=== PATIENT | male | born 1990 | race Caucasian/White ===

== ENCOUNTER 2016-06-29 21:21 | Emergency (ER) | payer OTHER ==
[2016-06-30 01:27] LABS: Hematocrit 44 % (42-52); Hemoglobin 14.8 g/dl (14.0-18.0); Mean Corpuscular HGB Conc 33 g/dl (31-36); Mean Corpuscular Hemoglobin 27 pg (27-31); Mean Corpuscular Volume 82 fL (80-94); Mean Platelet Volume 9 um3 (7.4-10.4); Red Blood Count 5.42 10^6/ul (4.0-5.4); Red Cell Distribution Width 14 % (10.5-15); White Blood Count 8.2 10^3/ul (3.5-10.8)
[2016-06-30 01:44] LABS: BUN/Creatinine Ratio 15.5 (8-20); Calcium 9.9 mg/dL (8.6-10.3); EGFR African American 144.4 (>60); EGFR Non-African American 112.3 (>60); Potassium 3.9 mmol/L (3.5-5.0)
[2016-06-30 03:40] VITALS: BP 157/101
--- NOTE | 2016-07-01 21:26 | ED ---
Jack Argueta Billy, scribed for Cade Holloway MD on 06/30/16 at 0047 . HPI Chest Pain - HPI Summary HPI Summary: Patient is a 26 year-old male coming to [facility] for evaluation of intermittent left anterior chest pain and lightheadedness since dinner. Pain began at approximately 211406/29/16, and has continued to this time in the ED. He states that the pain lasts only for several seconds. No pain with inspiration or movement. Positive intermittent palpitations. He also reports back pain. He had 6 cups of diet coke and a coffee today, which he states is much more than usual. He has been stressed at work. - History of Current Complaint Chief Complaint: EDChestPainROMI Time Seen by Provider: 06/30/16 00:02 Hx Obtained From: Patient Onset/Duration: Started Hours Ago Time of Onset: 21:15 Timing: Intermittent, Lasting Seconds Initial Severity: Moderate Current Severity: Moderate Pain Intensity: 2 Pain Scale Used: 0-10 Numeric Chest Pain Location: Left Anterior Chest Pain Radiates: No Aggravating Factor(s): Other: - stress, caffeine Alleviating Factor(s): Nothing Associated Signs and Symptoms: Positive: Chest Pain, Lightheadedness, Other: - palpitations - Allergy/Home Medications Allergies/Adverse Reactions: Allergies Allergy/AdvReac Type Severity Reaction Status Date / Time No Known Allergies Allergy Verified 06/29/16 21:33 PMH/Surg Hx/FS Hx/Imm Hx Endocrine/Hematology History: Denies: Hx Diabetes Cardiovascular History: Denies: Hx Myocardial Infarction Infectious Disease History: No Infectious Disease History: Denies: Traveled Outside the [place] in Last 30 Days - Family History Known Family History: Negative: Cardiac Disease - Social History Alcohol Use: Occasionally Hx Substance Use: No Substance Use Type: Reports: None Smoking Status (MU): Current Some Day Smoker Review of Systems Negative: Fever, Chills Negative: Erythema Negative: Sore Throat Positive: Palpitations, Chest Pain Negative: Shortness Of Breath, Cough Negative: Abdominal Pain, Vomiting, Nausea Positive: Other - back pain. Negative: Edema Negative: Rash Neurological: Other - lightheaded All Other Systems Reviewed And Are Negative: Yes Physical Exam - Summary Physical Exam Summary: Constitutional: Well-developed, Well-nourished, Alert. (-) Distressed Skin: Warm, Dry HENT: Normocephalic; Atraumatic Eyes: Conjunctiva normal Neck: Musculoskeletal ROM normal neck. (-) JVD, (-) Stridor, (-) Tracheal deviation Cardio: Rhythm regular, rate normal, Heart sounds normal; Intact distal pulses; The pedal pulses are 2+ and symmetric. Radial pulses are 2+ and symmetric. (-) Murmur Pulmonary/Chest wall: Effort normal. (-) Respiratory distress, (-) Wheezes, (-) Rales Abd: Soft, (-) Tenderness, (-) Distension, (-) Guarding, (-) Rebound Musculoskeletal: Left scapular pain reproducible with ROM of left arm. (-) Edema Lymph: (-) Cervical adenopathy Neuro: Alert, Oriented x3 Psych: Mood and affect Normal Triage Information Reviewed: Yes Vital Signs On Initial Exam: Initial Vitals Temp Pulse Resp BP Pulse Ox 96.4 F 99 20 159/93 100 06/29/16 21:28 06/29/16 21:28 06/29/16 21:28 06/29/16 21:28 06/29/16 21:28 Vital Signs Reviewed: Yes Diagnostics - Vital Signs Vital Signs Temp Pulse Resp BP Pulse Ox 06/29/16 22:44 97.5 F 86 20 160/104 100 06/29/16 21:35 96.4 F 94 20 159/93 100 06/29/16 21:28 96.4 F 99 20 159/93 100 - Laboratory Result Diagrams: 06/30/16 01:15 06/30/16 01:15 Lab Statement: Any lab studies that have been ordered have been reviewed, and results considered in the medical decision making process. - EKG 2139 EKG Interpretation: NSR 92 bpm, no STEMI 0251 EKG Interpretation: NSR 80 bpm, no STEMI Re-Evaluation - Re-Evaluation First Eval Re-Evaluation Time: 03:32 Chest Pain Course/Dx - Course Assessment/Plan: 26 year-old male coming to the ED for evaluation of CP. EKG in the ED was unremarkable. Troponin #1 and #2 were both 0.00. Patient was discharged home to follow up with PCP. - Diagnoses Provider Diagnoses: Chest pain, unspecified, Caffeine abuse Discharge - Discharge Plan Condition: Stable Disposition: HOME Patient Education Materials: Chest Pain (ED), Caffeine Use (ED) Referrals: [facility] FERNANDO Escalera [Primary Care Provider] - The documentation as recorded by the Jack grewal Billy accurately reflects the service I personally performed and the decisions made by me, Cade Holloway MD.
== END 2016-06-30 03:39 | disposition home or self-care (01) ==
LOC: ED 21:21
DX: R07.9 Chest pain, unspecified (principal); F15.10 Other stimulant abuse, uncomplicated; M54.9 Dorsalgia, unspecified; R42 Dizziness and giddiness; R00.2 Palpitations; Z72.0 Tobacco use
CPT/HCPCS: 36415; 80048; 84484; 85027; 93005; 99282

== ENCOUNTER 2016-07-31 10:26 | Emergency (ER) | payer OTHER ==
[2016-07-31] MEDS ORDERED: Aspirin Low Dose CHEW TAB* 81 MG PO ONE (14:08)
[2016-07-31 14:09] VITALS: BP 142/123
--- NOTE | 2016-07-31 14:34 | RAD ---
HISTORY: Chest pain COMPARISONS: None VIEWS: 2: Frontal dual-energy and lateral views of the chest. FINDINGS: CARDIOMEDIASTINAL SILHOUETTE: The cardiomediastinal silhouette is normal. JULIETTE: The juliette are normal. PLEURA: The costophrenic angles are sharp. No pleural abnormalities are noted. LUNG PARENCHYMA: The lungs are clear. ABDOMEN: The upper abdomen is clear. There is no subphrenic gas. BONES AND SOFT TISSUES: No bone or soft tissue abnormalities are noted. OTHER: None. IMPRESSION: NO ACTIVE CARDIOPULMONARY DISEASE.
[2016-07-31 15:03] LABS: Hematocrit 48 % (42-52); Hemoglobin 15.9 g/dl (14.0-18.0); Mean Corpuscular HGB Conc 33 g/dl (31-36); Mean Corpuscular Hemoglobin 27 pg (27-31); Mean Corpuscular Volume 83 fL (80-94); Mean Platelet Volume 9 um3 (7.4-10.4); Red Blood Count 5.82 10^6/ul (4.0-5.4); Red Cell Distribution Width 14 % (10.5-15); White Blood Count 6.8 10^3/ul (3.5-10.8)
[2016-07-31 15:22] LABS: Albumin 4.8 g/dL (3.2-5.2); BUN/Creatinine Ratio 11.2 (8-20); Calcium 9.9 mg/dL (8.6-10.3); EGFR African American 135.1 (>60); Globulin 3.1 g/dL (2-4); Total Bilirubin 1.2 mg/dL (0.2-1.0); Total Protein 7.9 g/dL (6.4-8.9)
[2016-07-31 15:43] LABS: TSH (Thyroid Stimulating Horm) 1.09 mcIU/mL (0.34-5.60)
--- NOTE | 2016-07-31 21:59 | ED ---
Yareli Argueta Rebecca, scribed for Ciro Ramírez MD on 07/31/16 at 1357 . Shortness of Breath - HPI Summary HPI Summary: Pt is a 26 y/o M who presents to ED c/o SOB. SOB began suddenly yesterday and has been intermittent and improving since onset. SOB characterized as dysnpea at exertion. Sx aggravated by exertion, alleviated by rest. Additionally c/o ear pressure, frontal FIGUEROA (resolved), nasal congestion, dizziness and chest discomfort. Dizziness began yesterday morning, characterized as "weakness" and aggravated by walking, unchanged by Dramamine. Chest pain is described as intermittent sharp pain that occurs in extremely brief episodes, occurring 4 times per day. CP aggravated and alleviated by nothing. Denies tinnitus. Denies any recent travel. Previous similar episode of chest pain 1 month ago. - History of Current Complaint Chief Complaint: EDShortnessOfBreath Time Seen by Provider: 07/31/16 13:46 Hx Obtained From: Patient Onset/Duration: Sudden Onset Current Severity: None Dyspnea At: Exertion Aggrevating Factors: Movement Associated Signs & Symptoms: Chest Pain Unrelated to Cough - intermittent chest discomfort, Nasal Congestion, Dizzy - Allergy/Home Medications Allergies/Adverse Reactions: Allergies Allergy/AdvReac Type Severity Reaction Status Date / Time Penicillins Allergy Unknown Verified 07/31/16 10:30 Reaction Details PMH/Surg Hx/FS Hx/Imm Hx Endocrine/Hematology History: Denies: Hx Diabetes Cardiovascular History: Denies: Hx Myocardial Infarction Infectious Disease History: No Infectious Disease History: Denies: Traveled Outside the [place] in Last 30 Days - Family History Known Family History: Negative: Cardiac Disease - Social History Alcohol Use: Occasionally Alcohol Amount: excessive on the weekends Hx Substance Use: No Substance Use Type: Reports: None Substance Use Comment - Amount & Last Used: over a year and a half ago Smoking Status (MU): Current Some Day Smoker Review of Systems Positive: Other - Nasal congestion, ear pressure; Denies tinnitus Positive: Chest Pain - intermittent, brief episodes of sharp chest pain Positive: Shortness Of Breath - dyspnea at exertion Positive: Headache - frontal - resolved, Syncope - Dizziness when walking All Other Systems Reviewed And Are Negative: Yes Physical Exam Triage Information Reviewed: Yes Vital Signs On Initial Exam: Initial Vitals Temp Pulse Resp BP Pulse Ox 98.9 F 95 18 152/78 100 07/31/16 10:27 07/31/16 10:27 07/31/16 10:27 07/31/16 10:27 07/31/16 10:27 Vital Signs Reviewed: Yes Appearance: Positive: Well-Appearing, No Pain Distress, Obese Skin: Positive: Warm, Skin Color Reflects Adequate Perfusion, Dry Head/Face: Positive: Normal Head/Face Inspection Eyes: Positive: Normal ENT: Positive: Nasal congestion Neck: Positive: Supple, Nontender Respiratory/Lung Sounds: Positive: Clear to Auscultation, Breath Sounds Present Cardiovascular: Positive: RRR Abdomen Description: Positive: Nontender, Soft Bowel Sounds: Positive: Present Musculoskeletal: Positive: Normal Neurological: Positive: Normal Psychiatric: Positive: Normal Diagnostics - Vital Signs Vital Signs Temp Pulse Resp BP Pulse Ox 07/31/16 13:15 98 F 81 18 127/103 97 07/31/16 13:14 127/103 07/31/16 12:37 97.6 F 80 16 137/79 100 07/31/16 11:29 98.1 F 90 16 154/77 98 07/31/16 10:27 98.9 F 95 18 152/78 100 - Laboratory Lab Results: Lab Results 07/31/16 07/31/16 07/31/16 Range/Units 14:50 14:50 14:50 WBC 6.8 (3.5-10.8) 10^3/ul RBC 5.82 H (4.0-5.4) 10^6/ul Hgb 15.9 (14.0-18.0) g/dl Hct 48 (42-52) % MCV 83 (80-94) fL MCH 27 (27-31) pg MCHC 33 (31-36) g/dl RDW 14 (10.5-15) % Plt Count 242 (150-450) 10^3/ul MPV 9 (7.4-10.4) um3 Neut % (Auto) 59.7 (38-83) % Lymph % (Auto) 31.1 (25-47) % [place] % (Auto) 7.2 (1-9) % Eos % (Auto) 1.5 (0-6) % Baso % (Auto) 0.5 (0-2) % Absolute Neuts (auto) 4.1 (1.5-7.7) 10^3/ul Absolute Lymphs (auto) 2.1 (1.0-4.8) 10^3/ul Absolute Monos (auto) 0.5 (0-0.8) 10^3/ul Absolute Eos (auto) 0.1 (0-0.6) 10^3/ul Absolute Basos (auto) 0 (0-0.2) 10^3/ul Absolute Nucleated RBC 0.05 10^3/ul Nucleated RBC % 0.8 D-Dimer, Quantitative (Less Than 230) ng/mL Sodium 137 (133-145) mmol/L Potassium 4.0 (3.5-5.0) mmol/L Chloride 103 (101-111) mmol/L Carbon Dioxide 26 (22-32) mmol/L Anion Gap 8 (2-11) mmol/L BUN 10 (6-24) mg/dL Creatinine 0.89 (0.67-1.17) mg/dL Est GFR ( Amer) 135.1 (>60) Est GFR (Non-Af Amer) 105.0 (>60) BUN/Creatinine Ratio 11.2 (8-20) Glucose 93 (70-100) mg/dL Lactic Acid 1.3 (0.5-2.0) mmol/L Calcium 9.9 (8.6-10.3) mg/dL Total Bilirubin 1.20 H (0.2-1.0) mg/dL AST 21 (13-39) U/L ALT 33 (7-52) U/L Alkaline Phosphatase 49 (34-104) U/L Troponin I 0.00 (<0.04) ng/mL Total Protein 7.9 (6.4-8.9) g/dL Albumin 4.8 (3.2-5.2) g/dL Globulin 3.1 (2-4) g/dL Albumin/Globulin Ratio 1.5 (1-3) TSH 1.09 (0.34-5.60) mcIU/mL 07/31/16 Range/Units 16:42 WBC (3.5-10.8) 10^3/ul RBC (4.0-5.4) 10^6/ul Hgb (14.0-18.0) g/dl Hct (42-52) % MCV (80-94) fL MCH (27-31) pg MCHC (31-36) g/dl RDW (10.5-15) % Plt Count (150-450) 10^3/ul MPV (7.4-10.4) um3 Neut % (Auto) (38-83) % Lymph % (Auto) (25-47) % [place] % (Auto) (1-9) % Eos % (Auto) (0-6) % Baso % (Auto) (0-2) % Absolute Neuts (auto) (1.5-7.7) 10^3/ul Absolute Lymphs (auto) (1.0-4.8) 10^3/ul Absolute Monos (auto) (0-0.8) 10^3/ul Absolute Eos (auto) (0-0.6) 10^3/ul Absolute Basos (auto) (0-0.2) 10^3/ul Absolute Nucleated RBC 10^3/ul Nucleated RBC % D-Dimer, Quantitative < 200 (Less Than 230) ng/mL Sodium (133-145) mmol/L Potassium (3.5-5.0) mmol/L Chloride (101-111) mmol/L Carbon Dioxide (22-32) mmol/L Anion Gap (2-11) mmol/L BUN (6-24) mg/dL Creatinine (0.67-1.17) mg/dL Est GFR ( Amer) (>60) Est GFR (Non-Af Amer) (>60) BUN/Creatinine Ratio (8-20) Glucose (70-100) mg/dL Lactic Acid (0.5-2.0) mmol/L Calcium (8.6-10.3) mg/dL Total Bilirubin (0.2-1.0) mg/dL AST (13-39) U/L ALT (7-52) U/L Alkaline Phosphatase (34-104) U/L Troponin I (<0.04) ng/mL Total Protein (6.4-8.9) g/dL Albumin (3.2-5.2) g/dL Globulin (2-4) g/dL Albumin/Globulin Ratio (1-3) TSH (0.34-5.60) mcIU/mL Result Diagrams: 07/31/16 14:50 07/31/16 14:50 Lab Statement: Any lab studies that have been ordered have been reviewed, and results considered in the medical decision making process. - Radiology CXR Xray Interpretation: No Acute Changes - No acute cardiopulmonary disease Radiology Interpretation Completed By: Radiologist - EKG 1036 Cardiac Rate: NL - 92 bpm EKG Rhythm: Sinus Rhythm Course/Dx - Course Assessment/Plan: Mr. Arriola is a 26 y/o M who presents to ED c/o SOB since yesterday, characterized as dyspnea at exertion. Additionally c/o ear pressure, frontal FIGUEROA (resolved), nasal congestion, dizziness ("weakness") and chest discomfort. CP described as intermittent, sharp, very brief episodes occurring 4x per day. Prior similar episode of CP 1 month ago. Denies tinnitus. EKG and CXR reveal no acute findings. Troponin 0.00. D-Dimer within normal limits. Administered 324 mg ASA in the ED. He will be D/C to home with a Dx of chest pain with a follow up with PCP. - Diagnoses Provider Diagnoses: Chest pain Discharge - Discharge Plan Condition: Stable Disposition: HOME Patient Education Materials: Chest Pain (ED) Referrals: [facility] [Primary Care Provider] - 3 Days The documentation as recorded by the Yareli grewal Rebecca accurately reflects the service I personally performed and the decisions made by , Ciro Ramírez MD.
== END 2016-07-31 17:33 | disposition home or self-care (01) ==
LOC: ED 10:26
DX: R07.9 Chest pain, unspecified (principal); R05 Cough; R42 Dizziness and giddiness; R09.81 Nasal congestion
CPT/HCPCS: 36415; 71020; 80053; 83605; 84443; 84484; 85025; 85379; 93005; 99282; A9270-GY